=== PATIENT | male | born 1950 | race Caucasian/White ===

== ENCOUNTER → 2023-08-06 07:59 | Outpatient (REF) | payer OTHER, SELFPAY | LOC: RAD 07:59 | PROVIDERS: ATTENDING PHYSICIAN Surgery Vascular Surgery; FAMILY PHYSICIAN Family Medicine | DX: I73.9 Peripheral vascular disease, unspecified (principal); Z13.6 Encounter for screening for cardiovascular disorders | CPT/HCPCS: 76770; 93922; 93925 ==

== ENCOUNTER → 2024-02-13 14:00 | Outpatient (REF) | payer OTHER, SELFPAY | LOC: RAD 14:00 | PROVIDERS: ATTENDING PHYSICIAN Registered Nurse; FAMILY PHYSICIAN Family Medicine | DX: I73.9 Peripheral vascular disease, unspecified (principal) | CPT/HCPCS: 93922; 93925 ==

== ENCOUNTER → 2024-04-16 11:21 | Outpatient (REF) | payer OTHER, SELFPAY | LOC: RAD 11:21 | PROVIDERS: ATTENDING PHYSICIAN Surgery Vascular Surgery; FAMILY PHYSICIAN Family Medicine | DX: R09.89 Other specified symptoms and signs involving the circulatory and respiratory systems (principal) | CPT/HCPCS: 93880 ==

== ENCOUNTER → 2025-01-19 07:10 | Outpatient (REF) | payer OTHER, SELFPAY | LOC: RAD 07:10 | PROVIDERS: ATTENDING PHYSICIAN Surgery Vascular Surgery; FAMILY PHYSICIAN Family Medicine | DX: I73.9 Peripheral vascular disease, unspecified (principal) | CPT/HCPCS: 93922; 93925 ==